=== PATIENT | female | born 1995 | race Two or more races ===

== ENCOUNTER 2025-09-20 10:56 | Emergency (ER) | payer MEDICAID, SELFPAY ==
[2025-09-20 11:36] VITALS: BP 109/75; PULSE 72; RESP 16; TEMP 36.8; O2SAT 100; BMI 30.9
--- NOTE | 2025-09-20 11:56 | EDNOTE_ITS ---
ED Female Urogenital RME/HPI General Chief complaint: Urogenital-Female Stated complaint: Lower abdominal pain, spotting, painful urination Time Seen by Provider: 09/20/25 11:26 Arrival date/time: 09/20/25 10:56 This is a 30-year-old female that comes in with complaints of lower abdominal discomfort. Patient has some spotting as well. Patient reports pain and pressure with urination. Patient also describes urinary frequency and urgency and oliguria. Patient denies any past medical history. Patient denies any other complaints. Patient denies any fever, nausea, vomiting, diarrhea. Related Data Previous Rx's ?Medication ?Instructions ?Recorded cephalexin 500 mg capsule 500 mg PO BID #14 caps 09/20 ibuprofen 800 mg tablet 800 mg PO Q6H PRN pain #14 t abs 09/20/25 ibuprofen 800 mg tablet 800 mg PO Q6H PRN pain #14 t abs 09/20/25 Allergies Allergy/AdvReac Type Severity Reaction Status Date / Time No Known Allergies Allergy Verified 09/20/25 11:02 Review of Systems Review of Systems Systems Reviewed: All systems reviewed, normal except as documented Past Medical History Past Medical History NEUROLOGIC: Negative Neurological Disorders or Seizures CARDIAC: Negative Cardiac Disorders or Congestive Heart Failure RESPIRATORY: Negative Chronic Obstructive Pulmonary Disease (COPD) or Asthma GASTROINTESTINAL: Positive Gall Bladder Disease (CHOLECYSTECTOMY 2014); Negative Hepatitis or Colorectal Cancer GENITOURINARY: Negative Genitourinary Disorders, Renal Disease or Prostate Cancer REPRODUCTIVE: Negative Breast Cancer, Pelvic Inflammatory Disease or Testicular Cancer MUSCULOSKELETAL: Negative Musculoskeletal Disorders or Bone Cancer ENDOCRINE: Negative Endocrine Disorders, Diabetes Mellitus Type 1 or Diabetes Mellitus Type 2 HEMATOLOGIC: Negative Blood Disorders PSYCHO/SOCIAL: Negative Depression or Anxiety OTHER HISTORY: Negative Hospitalization, Autoimmune Disease, Down Syndrome, Developmental Delay, Shingles, Falls, Blood Transfusions, Blood Transfusion Reaction, Anesthesia Reactions, Organ Transplant, Chemotherapy, Radiation Therapy, Hyperbaric Therapy, MRSA, VRSA, Vancomycin-Resistant Enterococci, Human Immunodeficiency Virus (HIV), Chicken Pox, Measles, Mumps, Rubella (Tajik Measles), Pertussis, Clostridium Difficile, Cancer, Breast Cancer, Cervical Cancer, Colorectal Cancer, Lung Cancer, Ovarian Cancer, Prostate Cancer or Testicular Cancer Family History FAMILY HISTORY: Negative Family Psychiatric Problems, Family Respiratory Disorders, Family Cardiac Disorders, Family Gastrointestinal Problems, Family Cancer, Family Surgery or Family Anesthesia Reaction Surgical History SURGICAL: Negative Endocrine Surgery, Section or Organ Transplant Social History SMOKING STATUS: Never smoker SECOND HAND EXPOSURE: No Travel History EBOLA RISK: No ED Exam Narrative Physical exam: VITAL SIGNS: Reviewed. GENERAL APPEARANCE: Alert and interactive, follows commands, no acute distress HEAD AND FACE: Non-traumatic. ENT: PERRL, conjuctiva pink and clear, eyelid no trauma, Mucous membrane moist. NECK: Supple, nontender, no nuchal rigidity. CHEST: No tenderness, no crepitus, no paradoxical movement, no retractions. LUNGS: breathing even and unlabored HEART: Regular rate, cap refill less than 2 seconds ABDOMEN: Soft, nondistended, no guarding, nontender to palpation NEUROLOGICAL: Gross motor function intact sensory function intact, Appropriate for age. MUSCULOSKELETAL: low back nontender, full range of motion. EXTREMITIES: No redness no swelling no skin breakdown on bilateral foot and leg. Distal neurovascular status intact bilateral foot SKIN: Color pink, dry Course Quality Measures none Orders Category Date Time Status HCG Qualitative,Urine Stat Lab 09/20/25 12:17 Completed Urinalysis, C/S if Indicated Stat Lab 09/20/25 12:17 Completed Ibuprofen Tab [Motrin Tab] Med 09/20/25 14:30 Discontinued 800 mg PO X1 ONE cephALEXin [Keflex] Med 09/20/25 14:29 Discontinued 500 mg PO X1 ONE Vital Signs Vital signs: Vital Signs Temperature 98.3 F 09/20/25 11:36 Pulse Rate 72 09/20/25 11:36 Respiratory Rate 16 09/20/25 11:36 Blood Pressure 109/75 09/20/25 11:36 Pulse Oximetry (%) 100 09/20/25 11:36 Oxygen Delivery Method Room Air 09/20/25 11:36 Urogenital - Female MDM Narrative MDM Narrative:: UA ordered. Patient states she is on control and she does not suspect she is . Will get a hCG as well. Pt tx for a uti. pt told to follow up with urine culture with primary provider. Julienne dictation: Although this document has been carefully reviewed, there may still be some phonetic and other typographical errors. These errors are purely grammatical due to imperfections in the software program and should not be construed in any way to compromise the substance of the patient's medical care during this visit. Patient data External records reviewed:: [facility] previous records Clinical information provided by:: patient Social determinants that could affect healthcare access:: none Patient has the following chronic illnesses:: none How is presenting disease/condition affected by chronic disease/condition?: no chronic disease Evaluation data The following diagnostics were reviewed and interpreted by me:: lab results Lab and/or radiology exams considered but not ordered:: none Interpretation Summary: see [facility] Medications / Prescriptions Medications or Prescriptions considered but not ordered:: none Medication administrations:: Medication Administration History Discontinued Medications Cephalexin HCl (Cephalexin 250 Mg Capsule) 500 mg PO X1 ONE Stop: 09/20/25 14:30 Last Admin: 09/20/25 14:47 Dose: 500 mg Documented By: JENNYFER Ibuprofen (Ibuprofen Tab 400 Mg Tablet) 800 mg PO X1 ONE Stop: 09/20/25 14:31 Last Admin: 09/20/25 14:47 Dose: 800 mg Documented By: JENNYFER see [facility] Consultations Consultation(s) initiated? (list below): No Diagnosis Urogenital Female Differential Diagnosis: urinary tract infection, cystitis and other (hematuria) Most likely diagnosis given after review of the tests above:: uti Admission Indicated Admission indicated?: not indicated Admission Request Was there a request for admission?: No Disposition Plan Disposition Plan: Discharge Discharge Attestation Discharge Attestation: The patient and all family members were given an opportunity to ask questions and understood the discharge instructions. Discharge instructions specifically effects, indications for sooner follow up or return to the emergency department, and the expected course of current diagnosis. Patient condition: Stable Discharge Plan Plan Patient Disposition: HOME (Self Care) Patient condition on transfer: Stable Prescriptions/Referrals Prescriptions/Med Rec: New ibuprofen 800 mg tablet 800 mg PO Q6H PRN (Reason: pain) Qty: 14 0RF cephalexin 500 mg capsule 500 mg PO BID Qty: 14 0RF ibuprofen 800 mg tablet 800 mg PO Q6H PRN (Reason: pain) Qty: 14 0RF Referrals: Gorge Petersen MD [Primary Care Provider, Family Practice] - In 1 week Problem List Clinical Impression: UTI (urinary tract infection), Hematuria Patient/Caregiver Discharge Instructions Discharge Activity: activity as tolerated Education Materials: ED Hematuria, ED CYSTITIS Female Adult Additional Instructions: Follow up with primary provider in 1-2 days. Come back to ED if symptoms change or worsen Print Language: Venezuelan Stand Alone Forms: [employer] Award Info., Patient Portal Info Letter PA/DRY TRANSFER MAN Supervising Physician PA/DRY TRANSFER MAN Supervising Physician: deya
[2025-09-20 12:24] LABS: Collection Type, Urine Voided
[2025-09-20 12:41] LABS: Bilirubin,Urine Negative (Negative); Blood,Urine 2+ (Negative); Clarity,Urine Clear (Clear/Hazy); Color,Urine Lt-Yellow (Lt Yel-Yel); Culture Indicated,Urine Not Indicated; Glucose, Urine Negative (Negative); Ketones,Urine 1+ (Negative); Leukocyte Esterase,Urine Positive (Negative); Nitrite,Urine Negative (Negative); PH,Urine 6.0 (5.0-7.0); Protein,Urine Negative (Neg - Trace); RBC,Urine 16 /hpf (0-3); Specific Gravity,Urine 1.018 (1.001-1.035); Squamous Epithelial Cell,Urine 6 /hpf (0-5); Urobilinogen,Urine Negative mg/dL (0.0-1.0); WBC,Urine 6 /hpf (0-5)
[2025-09-20 12:50] LABS: HCG Qualitative,Urine Negative
[2025-09-20] MEDS: IBUPROFEN TAB 400 MG TABLET 800 MG PO (14:47)
== END 2025-09-20 14:55 | disposition home or self-care (01) ==
PROVIDERS: Nurse Practitioner Family; Emergency Provider Emergency Medicine; PCP Family Medicine
DX: N39.0 Urinary tract infection, site not specified (principal)
CPT/HCPCS: 81001; 81025; 99282; A9270

== ENCOUNTER 2025-10-15 19:21 | Emergency (ER) | payer MEDICAID, SELFPAY ==
[2025-10-15 19:21] VITALS: BP 135/73; PULSE 56; RESP 18; TEMP 37; O2SAT 100
[2025-10-15 19:22] VITALS: BMI 34.2
[2025-10-15 20:00] VITALS: PULSE 67; O2SAT 98
--- NOTE | 2025-10-15 20:13 | EDNOTE_ITS ---
ED Syncope RME/HPI General Chief Complaint: Syncope / Near Syncope Stated Complaint: NEAR SYNCOPE Time Seen by Provider: 10/15/25 19:42 Arrival date/time: 10/15/25 19:21 RME / HPI RME / HPI narrative: DR. PEREZ MAIN ED EVALUATION: Patient presents with near-syncopal episode with Hx of fainting after having looked at a post-operative photo, patient became lightheaded/dizzy/ diaphoretic, and near-syncopal. Reports similar episodes, although not always with specific triggers. No antecedent fever, chills, vomiting, and diarrhea. PMH: Syncope of unclear etiology PSH: Cholecystectomy Allergies: NKDA Social: Negative Related Data Previous Rx's ?Medication ?Instructions ?Recorded cephalexin 500 mg capsule 500 mg PO BID #14 caps 09/20 ibuprofen 800 mg tablet 800 mg PO Q6H PRN pain #14 t abs 09/20/25 ibuprofen 800 mg tablet 800 mg PO Q6H PRN pain #14 t abs 09/20/25 Allergies Allergy/AdvReac Type Severity Reaction Status Date / Time No Known Allergies Allergy Verified 09/20/25 11:02 Review of Systems Review of Systems Systems Reviewed: All systems reviewed, normal except as documented Past Medical History Past Medical History GASTROINTESTINAL: Positive Gall Bladder Disease (CHOLECYSTECTOMY 2014) ED Exam Narrative Physical exam: GEN. APPEARANCE: The patient is alert awake oriented X-3 under no distress, lying down comfortably, does not look ill/toxic, baseline bradicardic. Patient has good eye contact. Patient is cooperative. VITALS: All vitals were reviewed and the pulse ox is 100%, which is normal according to my interpretation HEENT: Normocephalic, atraumatic and nontender. Pupils are equal and reactive. Oral mucosa is moist. NECK: Supple, nontender, no meningismus, no JVD. There is no thyromegaly and no lymphadenopathy. CHEST: Nontender on palpation no deformity and no crepitus. CARDIOVASCULAR: Bradycardic, no murmur or gallop rub or extra beats. LUNGS: Clear to auscultation bilaterally with symmetrical chest rise. No laboring tachypnea or wheezing. No intercostal subcostal retraction. No rales and no rhonchi. ABDOMEN: Soft, flat, nontender to palpation, no guarding or rebound tenderness. There are no abnormal masses palpated. No pulsatile masses or bruits. Active and normal bowel sounds. EXTREMITIES: Normal inspection and palpation. No edema. No cyanosis. Patient is able to move all 4 extremities well SKIN: Warm and dry, no rashes noted. MUSCULOSKELETAL: No lumbar or midline bony tenderness. There is no CVA tenderness. No paraspinal muscle spasm or tenderness. NEURO: Cranial nerves II through XII grossly intact. There are no focal neurologic deficits noted. GCS is 15 PSYCHIATRIC: Patient is in normal mood and affect, cooperative. LYMPHATICS: No major lymphadenopathy noted. Course Quality Measures none Orders Category Date Time Status EKG (ED ONLY) *Do not use* NOW Care 10/15/25 20:15 Completed Orthostatic Vitals NOW Care 10/15/25 20:13 Active EKG (ED Only) Stat Exams 10/15/25 20:15 Draft CBC [CBC] Stat Lab 10/15/25 20:26 Completed CMP [Comprehensive Metabolic Panel] Stat Lab 10/15/25 20:26 Completed Urinalysis, C/S if Indicated Stat Lab 10/15/25 20:58 Completed Sodium Chloride 0.9% 1000 ml [Ns] 1,000 ml Med 10/15/25 20:13 Discontinued IV 999 mls/hr Sodium Chloride 0.9% 1000 ml [Ns] 1,000 ml Med 10/15/25 22:54 Active IV 999 mls/hr Vital Signs Vital signs: Vital Signs Temperature 98.6 F 10/15/25 19:21 Pulse Rate 56 L 10/15/25 19:21 Respiratory Rate 18 10/15/25 19:21 Blood Pressure 135/73 H 10/15/25 19:21 Pulse Oximetry (%) 100 10/15/25 19:21 Oxygen Delivery Method Room Air 10/15/25 19:21 Syncope MDM Narrative MDM Narrative:: Scribe Attestation: Dary Gallagher am scribing for and in the presence of Dr. Cruz. Provider Notation: Although this document has been carefully reviewed, there may still be some phonetic and other typographical errors. These errors are purely grammatical due to imperfections in the software program and should not be construed in any way to compromise the substance of the patient's medical care during this visit. Patient presents with near-syncopal episode with Hx of fainting after having looked at a post-operative photo, patient became lightheaded/dizzy/ diaphoretic, and near-syncopal. Reports similar episodes, although not always with specific triggers. Please see PE findings. Laboratory markers, including CBC and serum chemistries, demonstrated a marginally elevated WBC of 12.1, stable hemoglobin of 11.4, and platelet count of 362. Serum chemistries essential unremarkable. Glucose elevated at 180. UA demonstrates glucosuria, evidence of pyuria with rare bacteria present, and negative nitrate reaction. Specimen appears to be contaminated. Patient placed on court recording monitor and was hydrated with 1 L of normal saline and was found grossly orthostatic. Receiving second liter of saline, resting comfortably, and will endorse to Dr. Parks for final disposition. Patient data External records reviewed:: [facility] previous records (Reviewed prior ED records from 09/20/25. Patient was seen for Hematuria.) Clinical information provided by:: patient Social determinants that could affect healthcare access:: none Patient has the following chronic illnesses:: Gall Bladder Disease How is presenting disease/condition affected by chronic disease/condition?: uneffected by Evaluation data The following diagnostics were reviewed and interpreted by me:: lab results and EKG tracing(s) (EKG at 21:33 shows normal sinus rhythm at 63, no acute ST-T segment changes, normal axis, no ventricular ectopy, no signs of acute ischemia, normal intervals, per my interpretation.) Lab and/or radiology exams considered but not ordered:: None Interpretation Summary: See MDM above Medications / Prescriptions Medications or Prescriptions considered but not ordered:: None Medication administrations:: Medication Administration History Sodium Chloride (Ns) 1,000 mls @ 999 mls/hr IV .Q1H1M ONE Stop: 10/15/25 23:54 Last Admin: 10/15/25 23:12 Dose: 999 mls/hr Documented By: BATSHEVA Discontinued Medications Sodium Chloride (Ns) 1,000 mls @ 999 mls/hr IV .Q1H1M ONE Stop: 10/15/25 21:13 Last Infusion: 10/15/25 21:48 Dose: Infused Documented By: Admin: 10/15/25 20:23 Dose: 999 mls/hr Documented By: EE See above if any Consultations Consultation(s) initiated? (list below): No Diagnosis Syncope Differential Diagnosis: syncope due to orthostatic hypotension, vasovagal syncope, complete atrioventricular block, subarachnoid hemorrhage, pulmonary embolism and dehydration Most likely diagnosis given after review of the tests above:: Near-syncope, Bradycardia Admission Indicated Admission indicated?: not indicated Explain why admission is indicated or not indicated:: Pending final disposition Admission Request Was there a request for admission?: No Disposition Plan Disposition Plan: other (specify) (Patient signed out to Dr. Parks at 6 AM.) Discharge Plan Prescriptions/Referrals Prescriptions/Med Rec: No Action ibuprofen 800 mg tablet 800 mg PO Q6H PRN (Reason: pain) Qty: 14 0RF cephalexin 500 mg capsule 500 mg PO BID Qty: 14 0RF ibuprofen 800 mg tablet 800 mg PO Q6H PRN (Reason: pain) Qty: 14 0RF Referrals: No Primary/Family,Physician [Primary Care Provider] - In 1 week Problem List Clinical Impression: Near syncope, Bradycardia Patient/Caregiver Discharge Instructions Print Language: Uzbek
--- NOTE | 2025-10-15 20:15 | EKG_ITS ---
[facility] Test Date: 2025-10-15 Pat Name: TATI PENNINGTON Department: Room: - Gender: Female Endo Tech: : 1995 Requested By: Viraj Price Order Number: [id number] Reading MD: Viraj Price Measurements Intervals [place] Rate: 63 P: 25 DE: 126 QRS: 56 QRSD: 79 T: 49 QT: 406 QTc: 416 Interpretive Statements SINUS RHYTHM No previous ECG available for comparison /store/S0/[id number]/[id number]
[2025-10-15] MEDS: SODIUM CHLORIDE 0.9% 1000 ML 1,000 ML 999 ML IV ×2 (20:23→23:12)
[2025-10-15 20:28] VITALS: BP 98/65; PULSE 64; RESP 20; TEMP 36.9; O2SAT 100; BMI 30.9
[2025-10-15 20:33] VITALS: BP 110/65; BP 85/64; BP 86/67; PULSE 62; PULSE 66; PULSE 75
[2025-10-15 20:35] LABS: Basophils # (Auto) 0.0 Thou/mm3 (0.0-0.2); Basophils % (Auto) 0 % (0-2.5); Eosinophils # (Auto) 0.2 Thou/mm3 (0.0-0.5); Eosinophils % (Auto) 2 % (0-10); Hematocrit 35.3 % (36.0-46.0); Hemoglobin 11.4 g/dL (12.0-16.0); Immature Granulocytes Auto 0.03 Thou/mm3 (0.00-0.00); Lymphocytes # (Auto) 2.5 Thou/mm3 (1.0-4.8); Lymphocytes % (Auto) 20 % (10-50); Mean Corpuscular HGB Conc 32.3 g/dl (31.0-37.0); Mean Corpuscular Hemoglobin 23.1 pg (25.0-35.0); Mean Corpuscular Volume 72 fL (80-100); Monocytes # (Auto) 0.9 Thou/mm3 (0.0-0.8); Monocytes % (Auto) 7 % (0-12); Neutrophils # (Auto) 8.6 Thou/mm3 (1.8-7.7); Neutrophils % (Auto) 71 % (37-80); Nucleated Red Blood Cell # 0.00 Thou/mm3 (0.00-0.00); Nucleated Red Blood Cell % 0 /100 WBC (0); Platelet Count 362 Thou/mm3 (140-440); RDW Standard Deviation 35.2 fL (36.4-46.3); Red Blood Count 4.93 Miln/mm3 (4.00-5.20); White Blood Count 12.1 Thou/mm3 (3.6-11.0)
[2025-10-15 20:55] LABS: Alanine Aminotransferase 17 U/L (10-49); Albumin, Serum 4.3 gm/dL (3.5-5.0); Albumin/Globulin Ratio 1.5 (1.2-2.2); Alkaline Phosphatase 75 U/L (46-116); Anion Gap 7 (7-16); Aspartate Amino Transferase 19 U/L (0-34); BUN/Creatinine Ratio 13 Ratio (12-20); Bilirubin,Total 0.3 mg/dL (0.3-1.2); Blood Urea Nitrogen 9 mg/dL (9-23); Calcium 8.9 mg/dL (8.3-10.6); Calcium (Corrected) 8.9 mg/dL (8.5-10.1); Carbon Dioxide 27.9 mMol/L (20.0-31.0); Chloride 105 mMol/L (98-107); Creatinine (Component) 0.7 mg/dL (0.6-1.3); Estimated Creatinine Clearance 117.2 mL/min (>60); Globulin 2.8 gm/dL (2.3-3.5); Glucose 180 mg/dL (74-106); Osmolality,Calculated 283 (275-295); Potassium 3.5 mMol/L (3.4-5.1); Sodium 140 mMol/L (136-145); Total Protein 7.1 gm/dL (5.7-8.2); eGFR > 60 See Note
[2025-10-15 21:22] LABS: Collection Type, Urine Voided
[2025-10-15 22:13] LABS: Amorphous Crystals,Urine Present (Absent); Bacteria,Urine Rare; Bilirubin,Urine Negative (Negative); Blood,Urine Negative (Negative); Clarity,Urine Turbid (Clear/Hazy); Color,Urine Yellow (Lt Yel-Yel); Culture Indicated,Urine Contaminated; Glucose, Urine 4+ (Negative); Hyaline Casts,Urine < 1 /hpf (0-1); Ketones,Urine Negative (Negative); Leukocyte Esterase,Urine Positive (Negative); Nitrite,Urine Negative (Negative); PH,Urine 6.5 (5.0-7.0); Protein,Urine Trace (Neg - Trace); RBC,Urine 19 /hpf (0-3); Specific Gravity,Urine 1.024 (1.001-1.035); Squamous Epithelial Cell,Urine 15 /hpf (0-5); Urobilinogen,Urine Negative mg/dL (0.0-1.0); WBC,Urine 17 /hpf (0-5)
[2025-10-15 22:28] VITALS: BP 106/84; PULSE 80; RESP 16; TEMP 36.9; O2SAT 99
--- NOTE | 2025-10-16 00:36 | PD.EDADDENDU ---
Emergency Room Addendum Addendum Narrative: Patient signed out to me at approximately 2330 pending IV fluids. Please see Dr. Cruz's full history physical exam management of this patient up and to the signout. Repeat vitals are obtained. The patient feels better after 1 L of fluid. Lungs: No accessory muscle use Heart: Regular rate and rhythm. Skin: Membranes appear moist. Patient is able to get up and not orthostatic. Return precautions were given and understood.
[2025-10-16 00:49] VITALS: BP 101/76; BP 102/63; BP 106/75; PULSE 58; PULSE 60; PULSE 65
[2025-10-16 00:51] VITALS: BP 102/63; PULSE 64; TEMP 36.4; O2SAT 95
[2025-10-16 01:51] VITALS: BP 98/64; PULSE 66; RESP 15; TEMP 36.9; O2SAT 98
== END 2025-10-16 01:52 | disposition home or self-care (01) ==
PROVIDERS: Emergency Medicine; Emergency Provider Emergency Medicine
DX: R55 Syncope and collapse (principal); R00.1 Bradycardia, unspecified
CPT/HCPCS: 36415; 80053; 81001; 85025; 93005; 96360; 96361; 99283; J7030